=== PATIENT | male | born 2000 | race African-American/Black ===

== ENCOUNTER 2022-09-17 16:46 | Emergency (ER) | payer BC, OTHER ==
[~2022-09-17] VITALS: Ht 185.4 cm; Wt 79.4 kg
--- NOTE | 2022-09-17 17:13 | ED Cough/URI ---
General Chief Complaint: Cough/Cold/Flu Symptoms Stated Complaint: LETHARGY; COUGH; NAUSEA Source: patient Exam Limitations: no limitations History of Present Illness Date Seen by Provider: Sep 17, 2022 Time Seen by Provider: 16:50 Initial Comments Patient is a 22-year-old male who presents with sore throat, cough and body aches starting yesterday. Patient has difficulty swallowing secondary to pain. No nausea vomiting fever chills or sweats. No rash neck pain stiffness or rigidity. Patient attends [facility] and from [facility]. Timing/Duration: yesterday Severity/Quality: other Prior Episodes/Possible Cause: other Modifying Factors: Improves With Other Associated Symptoms: other Allergies and Home Medications Allergies Coded Allergies: No Known Drug Allergies (Unverified , 09/17/22) Patient Home Medication List Home Medication List Reviewed: Yes Review of Systems Review of Systems Constitutional: see HPI EENTM: see HPI Respiratory: see HPI Cardiovascular: see HPI Gastrointestinal: see HPI Genitourinary: see HPI Musculoskeletal: see HPI Skin: see HPI Psychiatric/Neurological: See HPI Hematologic/Lymphatic: See HPI Past Ndfvahb-Vibmaw-Razvzh Hx Patient Social History Tobacco Use?: No Use of E-Cig and/or Vaping dev: No Substance use?: No Alcohol Use?: No Pt feels they are or have been: No Immunizations Up To Date Influenza Vaccine Up-to-Date: Yes; Up-to-Date First/Initial COVID19 Vaccinat: YES Past Medical History Surgery/Hospitalization HX: Denies Physical Exam Vital Signs - First Documented 09/17/22 16:50 Temp 36.8 Pulse 98 Resp 16 B/P (MAP) 143/67 (92) Pulse Ox 98 O2 Delivery Room Air Capillary Refill : Height: '" Weight: lbs. oz. kg; BMI Method: General Appearance: no apparent distress Eyes: Bilateral Eye Normal Inspection, Bilateral Eye PERRL, Bilateral Eye EOMI HEENT: PERRL/EOMI, normal ENT inspection, TMs normal, pharyngeal erythema, tonsillar exudate Neck: supple, lymphadenopathy (R), lymphadenopathy (L), other Respiratory: lungs clear Cardiovascular: regular rate, rhythm Gastrointestinal: non tender, soft Extremities: normal range of motion, non-tender Neurologic/Psychiatric: oriented x 3 Skin: normal color, warm/dry Focused Exam Sepsis Stage: Ruled Out Progress/Results/Core Measures Suspected Sepsis SIRS Temperature: Pulse: Respiratory Rate: Blood Pressure / Mean: Results/Orders Lab Results Laboratory Tests Test 09/17/22 17:00 Range/Units Influenza Type A (RT-PCR) Not Detected Not Detecte Influenza Type B (RT-PCR) Not Detected Not Detecte SARS-CoV-2 RNA (RT-PCR) Not Detected Not Detecte Group A Streptococcus Screen NEGATIVE NEGATIVE My Orders Orders - SHAILA PALAFOX DO Covid 19 Inhouse Test (09/17/22 16:58) Rapid Strep A Screen (09/17/22 16:58) Influenza A And B By Pcr (09/17/22 16:58) Isolation Central Supply Req (09/17/22 16:58) Prednisone Tablet (Deltasone Tablet) (09/17/22 17:15) Medications Given in ED Current Medications Medications Dose Ordered Sig/Aki Route Start Time Stop Time Status Last Admin Dose Admin Prednisone 40 mg ONCE ONCE PO 09/17/22 17:15 09/17/22 17:17 DC 09/17/22 17:21 40 MG Vital Signs/I&O 09/17/22 16:50 Temp 36.8 Pulse 98 Resp 16 B/P (MAP) 143/67 (92) Pulse Ox 98 O2 Delivery Room Air Capillary Refill : Departure Communication (Admissions) Patient with dysphonia and dysphagia without hot potato voice or observable abscess. Strep COVID and influenza tests are negative prednisone given. We will continue supportive and therapeutic care with PCP follow-up. Return precautions reviewed. Patient verbalizes understanding agreement discharge instructions prior to departure peer Impression Primary Impression: Pharyngitis Disposition: HOME, SELF-CARE Condition: Stable Departure-Patient Inst. Decision time for Depature: 17:29 Referrals: NO,LOCAL PHYSICIAN (PCP/Family) Primary Care Physician Patient Instructions: Viral Pharyngitis (DC) Add. Discharge Instructions: You were evaluated in the emergency department for sore throat. COVID strep and influenza swabs were obtained and are negative. Your exam is consistent with viral pharyngitis. Please take Tylenol for pain and prednisone as directed. Follow-up with your PCP in 3 to 5 days for reevaluation if symptoms persist. Return to the ED if new or worsening symptoms. All discharge instructions reviewed with patient and/or family. Voiced understanding. Scripts Prednisone (Prednisone) 20 Mg Tab 40 MG PO DAILY, #3 TAB 0 Refills Prov: SHAILA PALAFOX DO 09/17/22 SHAILA PALAFOX DO Sep 17, 2022 17:13
[2022-09-17] MEDS ORDERED: predniSONE 20 MG TAB PO ONE (17:15)
[2022-09-17] MEDS ORDERED: PRD20T PO ×2 (17:31→17:39)
[2022-09-17 17:34] VITALS: BP 143/67
[2022-09-18] MEDS ORDERED: AMOX875T2 PO (15:15)
== END 2022-09-17 17:34 | disposition home or self-care (01) ==
LOC: ER FS 16:49
DX: J02.9 Acute pharyngitis, unspecified (principal); Z20.822 Contact with and (suspected) exposure to COVID-19; Z28.310 Unvaccinated for COVID-19
CPT/HCPCS: 87430; 87636